=== PATIENT | male | born 1950 | race Caucasian/White ===

== ENCOUNTER → 2016-11-02 | Outpatient (REF) | payer MEDICARE, OTHER | LOC: M SFHCPLAZ 11:33 | PROVIDERS: ATTEND Family Medicine | DX: R19.7 Diarrhea, unspecified (principal) ==

== ENCOUNTER → 2016-11-22 | Outpatient (REF) | payer MEDICARE, OTHER | LOC: M SFHCPLAZ 11:52 | PROVIDERS: ATTEND Family Medicine | DX: K52.9 Noninfective gastroenteritis and colitis, unspecified (principal) ==

== ENCOUNTER → 2016-11-25 | Outpatient (REF) | payer MEDICARE, OTHER ==
[2016-12-01 00:06] LABS: CALPROTECTIN STOOL <16 ug/g (0-120); O+P EXAM Final report (.)
== END ==
LOC: M SFHCPLAZ 11-24 17:02
PROVIDERS: ATTEND Family Medicine
DX: R19.7 Diarrhea, unspecified (principal)

== ENCOUNTER → 2016-11-25 | Outpatient (REF) | payer MEDICARE, OTHER ==
[2016-11-25 19:25] LABS: MEAN CORPUSCULAR HEMOGLOBIN 29.6 pg (27.0-33.0); MEAN CORPUSCULAR VOLUME 89.7 fl (80.0-96.0); RED CELL DISTRIBUTION WIDTH 13.1 % (11.5-14.5); WHITE BLOOD COUNT 7.8 K/mm3 (4.0-10.0)
[2016-11-25 20:29] LABS: ERYTHROCYTE SEDIMENTATION RATE 2 mm/hr (0-20)
[2016-11-25 21:09] LABS: EOSINOPHILS 3 % (0-5)
== END ==
LOC: M SFHCPLAZ 17:44
PROVIDERS: ATTEND Family Medicine
DX: R19.7 Diarrhea, unspecified (principal)

== ENCOUNTER → 2016-12-09 | Outpatient (REF) | payer MEDICARE, OTHER ==
[2016-12-13 00:07] LABS: 5HIAA 24HR URINE 4.8 mg/24 hr (0.0-14.9)
== END ==
LOC: M SFHCPLAZ 09:58
PROVIDERS: ATTEND Family Medicine
DX: K52.9 Noninfective gastroenteritis and colitis, unspecified (principal)

== ENCOUNTER → 2017-01-25 | Outpatient (REF) | payer MEDICARE, OTHER | LOC: M LAB REF 10:23 | PROVIDERS: ATTEND Ophthalmology | DX: H02.834 Dermatochalasis of left upper eyelid (principal); H02.831 Dermatochalasis of right upper eyelid ==

== ENCOUNTER → 2017-03-17 | Outpatient (REF) | payer MEDICARE, OTHER ==
[2017-03-17 15:31] LABS: ALKALINE PHOSPHATASE 70 U/L (45-117); ALT/SGPT 39 U/L (12-78); ANION GAP 6 MEQ/L (8-16); AST/SGOT 23 U/L (15-37); BILIRUBIN,TOTAL 0.5 MG/DL (0.2-1.0); BLOOD UREA NITROGEN 25 MG/DL (7-18); CARBON DIOXIDE LEVEL 30 MEQ/L (21-32); CHLORIDE LEVEL 108 MEQ/L (98-107); CHOLESTEROL LEVEL 165 MG/DL (<200); CREATININE FOR GFR 0.99 MG/DL (0.70-1.30); GLOMERULAR FILTRATION RATE > 60.0 (>49); GLUCOSE, FASTING 108 MG/DL (80-110); POTASSIUM SERUM 4.1 MEQ/L (3.5-5.1); SODIUM LEVEL 144 MEQ/L (136-145); TRIGLYCERIDES LEVEL 95 MG/DL (<150)
[2017-03-17 15:32] LABS: ALBUMIN 3.6 GM/DL (3.2-5.2); ALBUMIN/GLOBULIN RATIO 1.44 (1.00-1.93); FERRITIN 265 NG/ML (26-388); PERCENT SATURATION 25.2 % (19.7-37.4); TOTAL IRON BINDING CAPACITY 290 UG/DL (250-450); TOTAL PROTEIN 6.1 GM/DL (6.4-8.2)
== END ==
LOC: M SFHCPLAZ 07:58
PROVIDERS: ATTEND Family Medicine
DX: Z00.00 Encounter for general adult medical examination without abnormal findings (principal); E78.5 Hyperlipidemia, unspecified; E53.8 Deficiency of other specified B group vitamins; R73.01 Impaired fasting glucose; N40.1 Benign prostatic hyperplasia with lower urinary tract symptoms
CPT/HCPCS: 80053; 80061; 82550; 82728; 83036; 83550; G0103

== ENCOUNTER → 2017-05-30 | Outpatient (REF) | payer MEDICARE, OTHER ==
[2017-05-30 12:13] LABS: ANION GAP 9 MEQ/L (8-16); BLOOD UREA NITROGEN 15 MG/DL (7-18); CALCIUM LEVEL 8.5 MG/DL (8.8-10.2); CARBON DIOXIDE LEVEL 31 MEQ/L (21-32); CHLORIDE LEVEL 105 MEQ/L (98-107); CREATININE FOR GFR 0.96 MG/DL (0.70-1.30); GLOMERULAR FILTRATION RATE > 60.0 (>49); GLUCOSE, FASTING 84 MG/DL (80-110); POTASSIUM SERUM 3.7 MEQ/L (3.5-5.1); SODIUM LEVEL 145 MEQ/L (136-145)
== END ==
LOC: M SFHCPLAZ 10:24
PROVIDERS: ATTEND Physician Assistant Medical
DX: M54.42 Lumbago with sciatica, left side (principal)

== ENCOUNTER → 2017-05-30 | Outpatient (CLI) | payer MEDICARE, BC, OTHER ==
--- NOTE | 2017-05-30 15:33 | REP ---
MR LUMBAR SPINE WITHOUT CONTRAST: HISTORY: Back pain. COMPARISON: 11/01/2006. Decreased signal intensity on T2-weighted images is present in the L3-4 through L5-S1 intervertebral discs. The discs are decreased in height. These findings are consistent with disc degeneration. There is no disc bulge or herniation at the L1-2 level. The L1 nerves exit the neural foramina without compression. A diffuse disc bulge and small left paracentral intraforaminal disc protrusion are present. There is minimal compression of the thecal sac. There is hypertrophy of the posterior articulating facets. There is posterolateral displacement of the left L2 nerve distal to the neural foramen. The right L2 nerve exits the neural foramen with compression. A diffuse disc bulge is present at the L3-4 level. There is minimal compression of the thecal sac. There is hypertrophy of the posterior articulating facets. The L3 nerves exit the neural foramina without compression. A diffuse disc bulge is present at the L4-5 level. There is minimal compression of the thecal sac. There is hypertrophy of the posterior articulating facets. The L4 nerves exit the neural foramina without compression. A diffuse disc bulge is present at the L5-S1 level. There is no thecal sac compression. The previously noted small right intraforaminal and lateral disc protrusion is not seen. There is hypertrophy of the posterior articulating facets. There is compression of the L5 nerves in the neural foramina. The conus medullaris is normal in appearance terminating at the level of the L1-2 intervertebral disc. Increased signal intensity on T2-weighted images is present in the endplates of the L2-S1 vertebral bodies. This represents degenerative change. IMPRESSION: 1. Diffuse disc bulge and small left paracentral and intraforaminal disc protrusion at the L2-3 level with minimal thecal sac compression. This is a new finding. 2. Diffuse disc bugles at the L3-4 and L4-5 levels with minimal thecal sac compression. 3. Diffuse disc bulge at the L5-S1 level without thecal sac compression. The previously noted right intraforaminal and lateral disc protrusion is not seen. There is compression of the L5 nerves in the neural foramina. The left L5 nerve compression is a new finding. Signed by Dwight Madsen MD 05/30/2017 03:38 P
== END ==
LOC: M RAD 13:40
PROVIDERS: ATTEND Physician Assistant Medical
DX: M54.42 Lumbago with sciatica, left side (principal); M51.26 Other intervertebral disc displacement, lumbar region; M51.27 Other intervertebral disc displacement, lumbosacral region; M43.07 Spondylolysis, lumbosacral region
CPT/HCPCS: 36415; 72110; 72148; 80048; G0463

== ENCOUNTER → 2017-05-30 | Outpatient (CLI) | payer MEDICARE, BC, OTHER ==
--- NOTE | 2017-05-30 12:17 | REP ---
Lumbar spine series: Five views. History: Low back pain with sciatica left-sided. Findings: Comparison radiographs are from October 24, 2006. Lumbar vertebral body heights are preserved. Alignment is normal. There is degenerative disc narrowing and fairly prominent osteophyte formation anteriorly at L5-S1 and to a somewhat lesser extent L3-4. Discogenic spurring is seen at L2-3 and L1-2. Degenerative disc spurring is new at L5-S1 and more pronounced at the other levels when compared with the prior study. Pedicles and posterior elements are intact. There is no evidence of spondylolysis or spondylolisthesis. There is some osteoarthritic facet hypertrophy and sclerosis bilaterally at L5-S1 and L4-5. This is also more pronounced compared to the prior study. No bony erosive change is seen. Psoas margins are symmetric. Sacrum and SI joints are intact. Mild vascular calcification is noted. Impression: Degenerative spondylosis changes more pronounced radiographically than on the 2007 prior study. Signed by Marek Gamez MD 05/30/2017 12:40 P
== END ==
LOC: M RAD 11:33
PROVIDERS: ATTEND Physician Assistant Medical
DX: M54.42 Lumbago with sciatica, left side (principal); M43.07 Spondylolysis, lumbosacral region

== ENCOUNTER → 2017-09-23 | Outpatient (REF) | payer MEDICARE, OTHER ==
[2017-09-23 13:44] LABS: BASO # 0.1 10^3/uL (0.0-0.2); BASO % 0.7 % (0.0-1.0); EOS # 0.2 10^3/uL (0.0-0.50); IMMATURE GRANULOCYTE % 0.4 % (0-0); LYMPH # 2.7 10^3/uL (1.5-4.5); LYMPH % 32.1 % (24.0-44.0); MEAN CORPUSCULAR HEMOGLOBIN 30.8 pg (27.0-33.0); MEAN CORPUSCULAR HGB CONC 33.9 g/dl (32.0-36.5); MEAN CORPUSCULAR VOLUME 90.9 fl (80.0-96.0); MONO # 0.6 10^3/uL (0.0-0.8); MONO % 6.6 % (0.0-5.0); NEUTROPHILS # 4.9 10^3/uL (1.8-7.7); NEUTROPHILS % 58.2 % (36.0-66.0); PLATELET COUNT, AUTOMATED 288 10^3/uL (150-450); RED CELL DISTRIBUTION WIDTH 13.1 % (11.5-14.5); WHITE BLOOD COUNT 8.3 10^3/uL (4.0-10.0)
[2017-09-23 13:59] LABS: VITAMIN B12 LEVEL 680 PG/ML (247-911)
[2017-09-23 14:11] LABS: ALBUMIN/GLOBULIN RATIO 1.48 (1.00-1.93); ALKALINE PHOSPHATASE 60 U/L (45-117); ALT/SGPT 35 U/L (12-78); ANION GAP 5 MEQ/L (8-16); AST/SGOT 17 U/L (7-37); BILIRUBIN,TOTAL 0.6 MG/DL (0.2-1.0); BLOOD UREA NITROGEN 19 MG/DL (7-18); CALCIUM LEVEL 9.3 MG/DL (8.8-10.2); CARBON DIOXIDE LEVEL 32 MEQ/L (21-32); CHLORIDE LEVEL 104 MEQ/L (98-107); CREATININE FOR GFR 0.93 MG/DL (0.70-1.30); FREE T4 0.81 NG/DL (0.76-1.46); GLOMERULAR FILTRATION RATE > 60.0 (>49); GLUCOSE, FASTING 84 MG/DL (80-110); POTASSIUM SERUM 4.4 MEQ/L (3.5-5.1); SODIUM LEVEL 141 MEQ/L (136-145); TOTAL PROTEIN 6.7 GM/DL (6.4-8.2)
[2017-09-25 00:07] LABS: Lyme Disease IgG/IgM Antibodie <0.91 ISR (0.00-0.90); Lyme Disease IgM Ab Quantitati <0.80 index (0.00-0.79)
== END ==
LOC: M SFHCPLAZ 09:27
PROVIDERS: ATTEND Family Medicine
DX: E53.8 Deficiency of other specified B group vitamins (principal); R73.01 Impaired fasting glucose; G31.84 Mild cognitive impairment of uncertain or unknown etiology; E55.9 Vitamin D deficiency, unspecified

== ENCOUNTER → 2017-09-30 | Outpatient (CLI) | payer MEDICARE, BC, OTHER ==
--- NOTE | 2017-09-30 11:03 | REP ---
MRI brain without contrast: History: Mild cognitive impairment. . Comparison study: No comparison imaging. Technique: Axial and sagittal imaging planes are utilized for T1 and T2-weighted scans. Sequences include spin-echo, fast spin echo, FLAIR, and diffusion weighted sequences. MRI findings: No bony calvarial lesion is seen. Craniocervical junction and upper cervical cord are normal in appearance. There is no MR evidence of significant paranasal sinus disease. No intraorbital abnormality is seen. The lateral, third, and fourth ventricles are normal in size and position. Auguste-white differentiation pattern is intact above and below the tentorium. There is no evidence of intracranial hemorrhage. No mass, infarction, extra-axial fluid collection or midline shift is seen. No abnormal white matter lesion is seen. Impression: Negative noncontrast brain MRI study. Signed by Marek Gamez MD 09/30/2017 10:55 A
== END ==
LOC: M PLARAD 08:48
PROVIDERS: ATTEND Family Medicine
DX: G31.84 Mild cognitive impairment of uncertain or unknown etiology (principal)

== ENCOUNTER → 2018-03-23 | Outpatient (REF) | payer MEDICARE, OTHER ==
[2018-03-23 12:17] LABS: ALBUMIN 3.6 GM/DL (3.2-5.2); ALBUMIN/GLOBULIN RATIO 1.44 (1.00-1.93); ALKALINE PHOSPHATASE 61 U/L (45-117); ALT/SGPT 39 U/L (12-78); ANION GAP 7 MEQ/L (8-16); AST/SGOT 16 U/L (7-37); BILIRUBIN,TOTAL 0.8 MG/DL (0.2-1.0); BLOOD UREA NITROGEN 18 MG/DL (7-18); C REACTIVE PROTEIN QUANTITATIV < 0.30 MG/DL (0.00-0.30); CALCIUM LEVEL 8.9 MG/DL (8.8-10.2); CARBON DIOXIDE LEVEL 30 MEQ/L (21-32); CHLORIDE LEVEL 104 MEQ/L (98-107); CHOLESTEROL LEVEL 171 MG/DL (<200); CPK CREATINE PHOSPHOKINASE 302 U/L (39-308); CREATININE FOR GFR 0.94 MG/DL (0.70-1.30); GLOMERULAR FILTRATION RATE > 60.0 (>49); GLUCOSE, FASTING 111 MG/DL (70-100); HDL CHOLESTEROL 57 MG/DL (>40); NON-HDL-C 114 MG/DL; POTASSIUM SERUM 4.1 MEQ/L (3.5-5.1); PROSTATIC SPECIFIC AG MONITOR 1.44 NG/ML (< 4.0); SODIUM LEVEL 141 MEQ/L (136-145); TOTAL PROTEIN 6.1 GM/DL (6.4-8.2); TRIGLYCERIDES LEVEL 70 MG/DL (<150)
[2018-03-23 13:05] LABS: ESTIMATED AVERAGE GLUCOSE 111 MG/DL (60-110); HEMOGLOBIN A1c 5.5 %
== END ==
LOC: M SFHCPLAZ 08:54
DX: I10 Essential (primary) hypertension (principal); N40.1 Benign prostatic hyperplasia with lower urinary tract symptoms; R73.01 Impaired fasting glucose
CPT/HCPCS: 82550

== ENCOUNTER → 2019-02-01 | Outpatient (CLI) | payer MEDICARE, BC, OTHER ==
--- NOTE | 2019-02-09 08:18 | SLEEPHOME ---
DATE OF PROCEDURE: 02/01/2019 ORDERED BY: Dr. Bello Diagnostic home sleep testing was performed due to concern for the obstructive sleep apnea syndrome. For testing a nocturnal T3 respiratory monitoring device was used. Continuous record was made of pulse, oxygen saturation airflow, chest, abdominal strain and body position. 9 hours and 59 minutes of data were reviewed. There were 8 hours and 44 minutes marked as time in bed. During the interval marked time in bed there were 108 respiratory events identified of 10 seconds in duration or greater for a respiratory event index of 12.4. The events were primarily obstructive about 22 central and mixed apneas were seen. Baseline pulse rate and saturation values were unable to be obtained as the probe became dislodged early in the study. Testing was performed in both the supine and nonsupine positions. IMPRESSION: Abnormal home sleep testing with repetitive respiratory events and a respiratory event index of 12.4 is consistent with the obstructive sleep apnea syndrome. RECOMMENDATIONS: The patient should be encouraged to undergo formal sleep evaluation and in laboratory pressure titration.
== END ==
LOC: M SLEEP HO 10:54
PROVIDERS: ATTEND Family Medicine
DX: R40.0 Somnolence (principal)

== ENCOUNTER → 2019-05-07 | Outpatient (CLI) | payer MEDICARE, BC, OTHER ==
--- NOTE | 2019-05-09 09:12 | SLEEPCENT ---
DATE OF STUDY: 05/07/2019 ORDERED BY: LETY Stock Nocturnal polysomnography was performed for evaluation of sleep physiology in this patient with a history of excessive somnolence and abnormal home testing who has comorbidities of hypertension and acid reflux disease. 7 hours and 26 minutes of data were reviewed. There were 318 minutes of sleep identified. Sleep latency was prolonged at 24 minutes. REM latency was prolonged at 323 minutes. Sleep architecture showed poor progression and some fragmentation. There was one REM cycle. Overall sleep efficiency 72.1%. The electrocardiogram showed a sinus rhythm with an average heart rate of 56 beats per minute. EEG showed normal waveforms for awake and sleep. There were 110 respiratory events identified of 10 seconds in duration or greater for an apnea-hypopnea index of 20.8. The events were primarily obstructive not exclusive to sleep stage nor body posture. Arousals from respiratory events occurred 14.3 times per hour and oxygen desaturations were seen into the 80s. There was some activity in the limb. Limb movement arousal index of 6.6. IMPRESSION: Obstructive sleep apnea syndrome (G47.33), apnea-hypopnea index 20.8. RECOMMENDATION: The patient should be encouraged to return to sleep disorder center for pressure therapy. In the interim, alcohol and sedative avoidance should be practiced and caution exercised during the operation of motor vehicles. cc: ASHWINI Salazar
== END ==
LOC: M SLEEP 19:41
PROVIDERS: ATTEND Physician Assistant
DX: G47.30 Sleep apnea, unspecified (principal)

== ENCOUNTER → 2019-06-10 | Outpatient (CLI) | payer MEDICARE, BC, OTHER ==
--- NOTE | 2019-06-14 12:42 | SLEEPCENT ---
DATE OF PROCEDURE: 06/10/2019 ORDERING PROVIDER: Fidel Danielle PA-C, INTERPRETATION Nocturnal polysomnography was performed for the titration of pressure therapy in this patient with obstructive sleep apnea syndrome. Apnea-hypopnea index of 20.8. For testing a ResMed Mirage FX nasal mask of standard size was used, 4 cm of water pressure were applied to the circuit and the lights were extinguished. 7 hours and 5 minutes of data were reviewed. There were 392.5 minutes of sleep identified. Sleep latency was normal at 10.5 minutes. Rapid eye movement (REM) latency was delayed at 206 minutes. Sleep architecture improved with optimal pressure therapy. There was only one REM episodes. The overall sleep efficiency was 69.6%. Electrocardiogram showed sinus rhythm with an average heart rate of 56 beats per minute. EEG showed normal waveforms for wake and sleep stages. Respiratory events were fully palliated with CPAP to a pressure of +5. Some limb activity was noted in the EMG leads. Limb movement arousal index of 9.2 up from the diagnostic night. IMPRESSION: Obstructive sleep apnea syndrome (G47.33) RECOMMENDATIONS: Nightly use of pressure therapy 5 cm of water. MTDD
== END ==
LOC: M SLEEP 20:00
PROVIDERS: ATTEND Physician Assistant
DX: G47.33 Obstructive sleep apnea (adult) (pediatric) (principal)

== ENCOUNTER → 2019-06-27 | Outpatient (REF) | payer MEDICARE, BC, OTHER ==
[2019-06-27 09:53] LABS: APPEARANCE, URINE CLEAR (CLEAR); BACTERIA, URINE AUTO NEGATIVE (NEGATIVE); BASO % 0.6 % (0.0-1.0); BILIRUBIN, URINE AUTO NEGATIVE (NEGATIVE); BLOOD, URINE BLOOD NEGATIVE (NEGATIVE); COLOR, URINE YELLOW (YELLOW); EOS # 0.2 10^3/uL (0.0-0.5); EOS % 2.6 % (0.0-3.0); GLUCOSE, URINE (UA) AUTO NEGATIVE (NEGATIVE); HEMATOCRIT 49.3 % (42.0-52.0); HEMOGLOBIN 16.9 g/dl (13.5-17.5); KETONE, URINE AUTO NEGATIVE (NEGATIVE); LEUKOCYTE ESTERASE, URINE AUTO NEGATIVE (NEGATIVE); LYMPH # 2.3 10^3/uL (1.5-5.0); LYMPH % 33.7 % (24.0-44.0); MEAN CORPUSCULAR HEMOGLOBIN 31.1 pg (27.0-33.0); MEAN CORPUSCULAR HGB CONC 34.3 g/dl (32.0-36.5); MEAN CORPUSCULAR VOLUME 90.6 fl (80.0-96.0); MONO # 0.4 10^3/uL (0.0-0.8); MONO % 6.3 % (0.0-5.0); MUCUS, URINE SMALL (NEGATIVE); NEUTROPHILS # 3.9 10^3/uL (1.5-8.5); NEUTROPHILS % 56.7 % (36.0-66.0); NITRITE, URINE AUTO NEGATIVE (NEGATIVE); PLATELET COUNT, AUTOMATED 255 10^3/uL (150-450); PROTEIN, URINE AUTO NEGATIVE (NEGATIVE); RBC, URINE AUTO 0 /HPF (0-3); RED BLOOD COUNT 5.44 10^6/uL (4.30-6.10); SPECIFIC GRAVITY URINE AUTO 1.026 (1.002-1.035); SQUAMOUS EPITHELIAL CELL UR AU 0 /HPF (0-6); UROBILINOGEN, URINE AUTO 0.2 mg/dL (0.0-2.0); WBC, URINE AUTO 0 /HPF (0-3); WHITE BLOOD COUNT 6.9 10^3/uL (4.0-10.0)
[2019-06-27 10:23] LABS: ALBUMIN 3.6 GM/DL (3.2-5.2); ALT/SGPT 40 U/L (12-78); BILIRUBIN,TOTAL 0.7 MG/DL (0.2-1.0); BLOOD UREA NITROGEN 15 MG/DL (7-18); CALCIUM LEVEL 9.1 MG/DL (8.8-10.2); CARBON DIOXIDE LEVEL 28 MEQ/L (21-32); CHLORIDE LEVEL 105 MEQ/L (98-107); CHOLESTEROL LEVEL 168 MG/DL (<200); CHOLESTEROL RISK RATIO 2.847 (<5); CREATININE FOR GFR 0.88 MG/DL (0.70-1.30); FREE T4 0.79 NG/DL (0.76-1.46); GLOMERULAR FILTRATION RATE > 60.0 (>49); GLUCOSE, FASTING 117 MG/DL (70-100); HDL CHOLESTEROL 59 MG/DL (>40); LDL CHOLESTEROL 93 MG/DL (<100); NON-HDL-C 109 MG/DL; SODIUM LEVEL 142 MEQ/L (136-145); TRIGLYCERIDES LEVEL 81 MG/DL (<150)
[2019-06-27 10:25] LABS: MALB URINE SIEMENS 25.8 MG/L; MAU/CREAT RATIO 12.1 MCG/MG (0.0-30.0)
[2019-06-27 10:29] LABS: PTH INTACT 62.1 PG/ML (18.5-88.0); TOTAL 25(OH) VITAMIN D 64.8 NG/ML (30.0-100.0); VITAMIN B12 LEVEL 534 PG/ML (247-911)
[2019-06-27 11:12] LABS: HEMOGLOBIN A1c 5.6 %
== END ==
LOC: M LABDRAWP 08:12
PROVIDERS: ATTEND Family Medicine
DX: E53.8 Deficiency of other specified B group vitamins (principal); E55.9 Vitamin D deficiency, unspecified; R73.01 Impaired fasting glucose; E78.5 Hyperlipidemia, unspecified
CPT/HCPCS: 36415; 80053; 80061; 81001; 82043; 82306; 82607; 83036; 83735; 83970; 84439; 84443; 85025; G0103

== ENCOUNTER → 2020-08-26 | Outpatient (REF) | payer MEDICARE, OTHER ==
[2020-08-26 10:25] LABS: BASO % 0.6 % (0.0-1.0); EOS # 0.2 10^3/uL (0.0-0.5); EOS % 2.7 % (0.0-3.0); HEMATOCRIT 51.8 % (42.0-52.0); HEMOGLOBIN 16.8 g/dl (13.5-17.5); LYMPH # 2.2 10^3/uL (1.5-5.0); LYMPH % 33.4 % (24.0-44.0); MEAN CORPUSCULAR HEMOGLOBIN 29.4 pg (27.0-33.0); MEAN CORPUSCULAR HGB CONC 32.4 g/dl (32.0-36.5); MEAN CORPUSCULAR VOLUME 90.6 fl (80.0-96.0); MONO # 0.4 10^3/uL (0.0-0.8); MONO % 5.5 % (0.0-5.0); NEUTROPHILS # 3.8 10^3/uL (1.5-8.5); NEUTROPHILS % 57.5 % (36.0-66.0); PLATELET COUNT, AUTOMATED 281 10^3/uL (150-450); RED BLOOD COUNT 5.72 10^6/uL (4.30-6.10); WHITE BLOOD COUNT 6.7 10^3/uL (4.0-10.0)
[2020-08-26 11:28] LABS: ALBUMIN 3.9 GM/DL (3.2-5.2); ALT/SGPT 36 U/L (12-78); BILIRUBIN,TOTAL 0.7 MG/DL (0.2-1.0); BLOOD UREA NITROGEN 14 MG/DL (7-18); CALCIUM LEVEL 9.4 MG/DL (8.8-10.2); CARBON DIOXIDE LEVEL 30 MEQ/L (21-32); CHLORIDE LEVEL 105 MEQ/L (98-107); CREATININE FOR GFR 1.04 MG/DL (0.70-1.30); FREE T4 0.85 NG/DL (0.76-1.46); GLOMERULAR FILTRATION RATE > 60.0 (>49); GLUCOSE, FASTING 128 MG/DL (70-100); POTASSIUM SERUM 4.6 MEQ/L (3.5-5.1); SODIUM LEVEL 141 MEQ/L (136-145); TOTAL 25(OH) VITAMIN D 61.8 NG/ML (30.0-100.0); TOTAL PROTEIN 6.4 GM/DL (6.4-8.2)
[2020-08-26 12:03] LABS: HEMOGLOBIN A1c 5.5 %
== END ==
LOC: M SFHCPLAZ 08:00
PROVIDERS: ATTEND Family Medicine
DX: I10 Essential (primary) hypertension (principal); E78.5 Hyperlipidemia, unspecified; R73.01 Impaired fasting glucose; Z12.5 Encounter for screening for malignant neoplasm of prostate; E55.9 Vitamin D deficiency, unspecified
CPT/HCPCS: 36415; 80053; 82306; 83036; 83525; 83970; 84439; 84443; 85025; 86376; G0103

== ENCOUNTER → 2021-08-27 | Outpatient (CLI) | payer MEDICARE, BC, OTHER ==
[2021-08-27 10:19] LABS: BASO % 0.6 % (0.0-1.0); EOS # 0.2 10^3/uL (0.0-0.5); EOS % 2.8 % (0.0-3.0); HEMATOCRIT 51.7 % (42.0-52.0); LYMPH # 2.1 10^3/uL (1.5-5.0); LYMPH % 29.6 % (24.0-44.0); MEAN CORPUSCULAR HEMOGLOBIN 30.2 pg (27.0-33.0); MEAN CORPUSCULAR HGB CONC 32.9 g/dl (32.0-36.5); MONO # 0.4 10^3/uL (0.0-0.8); MONO % 5.6 % (2.0-8.0); NEUTROPHILS # 4.3 10^3/uL (1.5-8.5); NEUTROPHILS % 61.3 % (36.0-66.0); PLATELET COUNT, AUTOMATED 270 10^3/uL (150-450); RED BLOOD COUNT 5.62 10^6/uL (4.30-6.10); WHITE BLOOD COUNT 7.1 10^3/uL (4.0-10.0)
[2021-08-27 10:49] LABS: HEMOGLOBIN A1c 5.4 %
[2021-08-27 11:06] LABS: ALBUMIN 3.7 GM/DL (3.2-5.2); ALT/SGPT 36 U/L (12-78); BILIRUBIN,TOTAL 0.7 MG/DL (0.2-1.0); BLOOD UREA NITROGEN 17 MG/DL (7-18); CALCIUM LEVEL 9.3 MG/DL (8.8-10.2); CARBON DIOXIDE LEVEL 30 MEQ/L (21-32); CHLORIDE LEVEL 107 MEQ/L (98-107); CHOLESTEROL LEVEL 175 MG/DL (<200); CHOLESTEROL RISK RATIO 3.645 (<5); CREATININE FOR GFR 1.03 MG/DL (0.70-1.30); FERRITIN 227 NG/ML (26-388); GLOMERULAR FILTRATION RATE > 60.0 (>42); GLUCOSE, FASTING 135 MG/DL (70-100); HDL CHOLESTEROL 48 MG/DL (>40); LDL CHOLESTEROL 108 MG/DL (<100); MAGNESIUM LEVEL 2.1 MG/DL (1.8-2.4); NON-HDL-C 127 MG/DL; NT-PRO BNP 27 PG/ML (<125); POTASSIUM SERUM 4.2 MEQ/L (3.5-5.1); SODIUM LEVEL 143 MEQ/L (136-145); TOTAL 25(OH) VITAMIN D 61.9 NG/ML (30.0-100.0); TOTAL PROTEIN 6.4 GM/DL (6.4-8.2); TRIGLYCERIDES LEVEL 94 MG/DL (<150); VITAMIN B12 LEVEL 610 PG/ML (247-911)
== END ==
LOC: M PLALAB 08:11
PROVIDERS: ATTEND Family Medicine
DX: E53.8 Deficiency of other specified B group vitamins (principal); I10 Essential (primary) hypertension; Z12.5 Encounter for screening for malignant neoplasm of prostate; R73.01 Impaired fasting glucose; E55.9 Vitamin D deficiency, unspecified; E78.5 Hyperlipidemia, unspecified; Z79.899 Other long term (current) drug therapy
CPT/HCPCS: 36415; 80053; 80061; 82306; 82607; 82728; 83036; 83525; 83735; 83880; 83970; 85025; G0103

== ENCOUNTER → 2022-03-26 | Outpatient (CLI) | payer MEDICARE, BC, OTHER ==
[2022-03-26 10:24] LABS: BASO # 0.1 10^3/uL (0.0-0.2); BASO % 0.9 % (0.0-1.0); EOS # 0.2 10^3/uL (0.0-0.5); EOS % 2.7 % (0.0-3.0); HEMATOCRIT 50.5 % (42.0-52.0); HEMOGLOBIN 16.7 g/dl (13.5-17.5); LYMPH # 2.3 10^3/uL (1.5-5.0); LYMPH % 32.3 % (24.0-44.0); MEAN CORPUSCULAR HGB CONC 33.1 g/dl (32.0-36.5); MEAN CORPUSCULAR VOLUME 90.8 fl (80.0-96.0); MONO # 0.4 10^3/uL (0.0-0.8); MONO % 5.4 % (2.0-8.0); NEUTROPHILS # 4.1 10^3/uL (1.5-8.5); NEUTROPHILS % 58.4 % (36.0-66.0); PLATELET COUNT, AUTOMATED 262 10^3/uL (150-450); RED BLOOD COUNT 5.56 10^6/uL (4.30-6.10)
[2022-03-26 10:45] LABS: HEMOGLOBIN A1c 5.6 %
[2022-03-26 10:57] LABS: ALBUMIN 3.6 GM/DL (3.2-5.2); ALT/SGPT 32 U/L (12-78); BLOOD UREA NITROGEN 14 MG/DL (7-18); CALCIUM LEVEL 9.7 MG/DL (8.8-10.2); CARBON DIOXIDE LEVEL 32 MEQ/L (21-32); CHLORIDE LEVEL 105 MEQ/L (98-107); CREATININE FOR GFR 0.92 MG/DL (0.70-1.30); FERRITIN 243 NG/ML (26-388); FREE T4 0.73 NG/DL (0.76-1.46); GLOMERULAR FILTRATION RATE > 60.0 (>42); GLUCOSE, FASTING 130 MG/DL (70-100); IMMUNOGLOBULIN E 19.3 IU/ML (<100); IRON (FE) 173 UG/DL (65-175); PERCENT SATURATION 60.5 % (19.7-50.0); POTASSIUM SERUM 4.6 MEQ/L (3.5-5.1); SODIUM LEVEL 142 MEQ/L (136-145); TOTAL IRON BINDING CAPACITY 286 UG/DL (250-450); TOTAL PROTEIN 6.2 GM/DL (6.4-8.2)
[2022-03-27 09:11] LABS: APOLIPOPROTEIN B/A-1 RATIO 0.6 ratio (0.0-0.7); ERYTHROPOIETIN 8.8 mIU/mL (2.6-18.5); INSULIN LEVEL 9.5 uIU/mL (2.6-24.9)
== END ==
LOC: M PLALAB 08:17
PROVIDERS: ATTEND Family Medicine
DX: R73.01 Impaired fasting glucose (principal); I10 Essential (primary) hypertension; J30.9 Allergic rhinitis, unspecified; E78.5 Hyperlipidemia, unspecified

== ENCOUNTER → 2022-04-26 | Outpatient (CLI) | payer MEDICARE, BC, OTHER | LOC: M PLAIMG 12:20 | PROVIDERS: ATTEND Physician Assistant | DX: S30.0XXA Contusion of lower back and pelvis, initial encounter (principal); X58.XXXA Exposure to other specified factors, initial encounter; Y92.9 Unspecified place or not applicable; Y93.9 Activity, unspecified; Y99.9 Unspecified external cause status ==

== ENCOUNTER → 2022-06-15 | Outpatient (CLI) | payer MEDICARE, BC, OTHER ==
[2022-06-15 14:33] LABS: BASO % 0.6 % (0.0-1.0); EOS # 0.2 10^3/uL (0.0-0.5); EOS % 3.3 % (0.0-3.0); HEMATOCRIT 49.8 % (42.0-52.0); HEMOGLOBIN 16.8 g/dl (13.5-17.5); LYMPH # 2.4 10^3/uL (1.5-5.0); LYMPH % 33.3 % (24.0-44.0); MEAN CORPUSCULAR HEMOGLOBIN 30.8 pg (27.0-33.0); MEAN CORPUSCULAR HGB CONC 33.7 g/dl (32.0-36.5); MEAN CORPUSCULAR VOLUME 91.2 fl (80.0-96.0); MONO # 0.4 10^3/uL (0.0-0.8); MONO % 5.8 % (2.0-8.0); NEUTROPHILS # 4.1 10^3/uL (1.5-8.5); NEUTROPHILS % 56.7 % (36.0-66.0); PLATELET COUNT, AUTOMATED 248 10^3/uL (150-450); RED BLOOD COUNT 5.46 10^6/uL (4.30-6.10); WHITE BLOOD COUNT 7.2 10^3/uL (4.0-10.0)
[2022-06-15 15:12] LABS: ALBUMIN 3.8 GM/DL (3.2-5.2); ALT/SGPT 33 U/L (12-78); BILIRUBIN,TOTAL 0.6 MG/DL (0.2-1.0); BLOOD UREA NITROGEN 16 MG/DL (7-18); CALCIUM LEVEL 9.4 MG/DL (8.8-10.2); CARBON DIOXIDE LEVEL 31 MEQ/L (21-32); CHLORIDE LEVEL 104 MEQ/L (98-107); CREATININE FOR GFR 0.86 MG/DL (0.70-1.30); GLOMERULAR FILTRATION RATE > 60.0 (>42); GLUCOSE, FASTING 91 MG/DL (70-100); NT-PRO BNP 42 PG/ML (<125); POTASSIUM SERUM 4.4 MEQ/L (3.5-5.1); SODIUM LEVEL 139 MEQ/L (136-145); TOTAL PROTEIN 6.2 GM/DL (6.4-8.2)
== END ==
LOC: M PLALAB 11:54
PROVIDERS: ATTEND Family Medicine
DX: I10 Essential (primary) hypertension (principal)

== ENCOUNTER → 2022-07-19 | Outpatient (CLI) | payer MEDICARE, BC, OTHER | LOC: M RAD 07:54 | PROVIDERS: ATTEND Family Medicine | DX: I10 Essential (primary) hypertension (principal) ==

== ENCOUNTER → 2023-08-16 | Outpatient (CLI) | payer MEDICARE, BC, OTHER ==
[2023-08-16 12:15] LABS: TOTAL PROTEIN,RANDOM URINE 11.7 MG/DL (0.0-14.0)
[2023-08-16 12:20] LABS: CREATININE,RANDOM URINE 93.9 MG/DL
[2023-08-16 12:21] LABS: TOTAL 25(OH) VITAMIN D 63.4 NG/ML (20.0-100.0)
[2023-08-16 12:22] LABS: ALBUMIN 3.8 G/DL (3.2-5.2); ALKALINE PHOSPHATASE 63 U/L (46-116); ALT/SGPT 35 U/L (7.0-40); AST/SGOT 22 U/L (<34); BLOOD UREA NITROGEN 18 MG/DL (9-23); CALCIUM LEVEL 9.4 MG/DL (8.3-10.6); CARBON DIOXIDE LEVEL 31 MMOL/L (20-31); CHLORIDE LEVEL 104 MMOL/L (98-107); CHOLESTEROL LEVEL 191 MG/DL (<200); CREATININE FOR GFR 0.86 MG/DL (0.70-1.30); GLOMERULAR FILTRATION RATE > 60.0 (>42); GLUCOSE, FASTING 117 MG/DL (74-106); HDL CHOLESTEROL 51.5 MG/DL (>40); LDL CHOLESTEROL 111.9 MG/DL (<100); NON-HDL-C 139.5 MG/DL; POTASSIUM SERUM 4.2 MMOL/L (3.5-5.1); SODIUM LEVEL 141 MMOL/L (136-145); TOTAL PROTEIN 6.3 G/DL (5.7-8.2); TRIGLYCERIDES LEVEL 138 MG/DL (<150)
[2023-08-16 12:27] LABS: PTH INTACT 63.7 PG/ML (18.5-88.0)
[2023-08-16 12:30] LABS: THYROID PEROXIDASE ANTIBODY < 28.0 U/ML (<60.0)
[2023-08-26 11:09] LABS: IGE RECEPTOR ABY 1 9.8 (<10)
== END ==
LOC: M PLALAB 07:13
PROVIDERS: ATTEND Family Medicine
DX: I10 Essential (primary) hypertension (principal); Z12.5 Encounter for screening for malignant neoplasm of prostate; E55.9 Vitamin D deficiency, unspecified; E78.5 Hyperlipidemia, unspecified; L50.1 Idiopathic urticaria
CPT/HCPCS: 36415; 80053; 80061; 82306; 82570; 83735; 83880; 83970; 84156; 86352; 86376; G0103

== ENCOUNTER → 2023-08-16 | Outpatient (REF) | payer MEDICARE, BC, OTHER | LOC: M SFHCPLAZ 12:56 | PROVIDERS: ATTEND Family Medicine | DX: I10 Essential (primary) hypertension (principal); E55.9 Vitamin D deficiency, unspecified; Z12.5 Encounter for screening for malignant neoplasm of prostate; E78.5 Hyperlipidemia, unspecified; L50.1 Idiopathic urticaria; Z53.9 Procedure and treatment not carried out, unspecified reason ==

== ENCOUNTER 2024-02-02 09:45 | Day surgery (SDC) | payer MEDICARE, BC ==
[~2024-02-02] VITALS: Ht 172.7 cm; Wt 75.9 kg
[~2024-02-02 09:45] MED LIST: ASPI81TA26 PO; ATOR40TA75 PO; CELE10TA PO; CHLO25TA PO; CULT10CA4 PO; CYAN500T14 PO; LEVOTAB10 PO; OMEP1CAP73 PO; TELM1TAB35 PO; VITA100093 PO; propofoL 200 MG/20 ML VIAL As Ordered ONE; propofoL 500 MG/50 ML VIAL As Ordered ONE
[2024-02-02] MEDS: NS 1,000 ML IV ONE (10:00)
[2024-02-02 10:29] VITALS: TEMP 98.3
[2024-02-02 10:47] VITALS: BP 142/78; O2SAT 99
== END 2024-02-02 10:57 | disposition home or self-care (01) ==
LOC: M OPP 09:45
PROVIDERS: ATTEND Surgery
DX: Z12.11 Encounter for screening for malignant neoplasm of colon (principal); D12.4 Benign neoplasm of descending colon; D12.2 Benign neoplasm of ascending colon; D12.3 Benign neoplasm of transverse colon; G47.30 Sleep apnea, unspecified; Z79.02 Long term (current) use of antithrombotics/antiplatelets; Z79.82 Long term (current) use of aspirin; Z79.899 Other long term (current) drug therapy; Z87.891 Personal history of nicotine dependence; Z99.89 Dependence on other enabling machines and devices

== ENCOUNTER → 2024-02-17 | Outpatient (CLI) | payer MEDICARE, BC ==
[~2024-02-17] MED LIST changes: +ALPR0.5T3 PO; -propofoL 200 MG/20 ML VIAL As Ordered ONE; -propofoL 500 MG/50 ML VIAL As Ordered ONE
[2024-02-17 16:29] LABS: ALBUMIN 3.9 G/DL (3.2-5.2); ALKALINE PHOSPHATASE 60 U/L (46-116); ALT/SGPT 44 U/L (7.0-40); AST/SGOT 23 U/L (<34); BILIRUBIN,TOTAL 0.7 MG/DL (0.3-1.2); BLOOD UREA NITROGEN 17 MG/DL (9-23); CALCIUM LEVEL 9.7 MG/DL (8.3-10.6); CARBON DIOXIDE LEVEL 33 MMOL/L (20-31); CHLORIDE LEVEL 104 MMOL/L (98-107); CHOLESTEROL LEVEL 167 MG/DL (<200); CHOLESTEROL RISK RATIO 3.18 (<5); CREATININE FOR GFR 0.88 MG/DL (0.70-1.30); GLOMERULAR FILTRATION RATE > 60.0 (>42); GLUCOSE, FASTING 81 MG/DL (74-106); HDL CHOLESTEROL 52.4 MG/DL (>40); LDL CHOLESTEROL 91.2 MG/DL (<100); MAGNESIUM LEVEL 2.1 MG/DL (1.8-2.4); NON-HDL-C 114.6 MG/DL; SODIUM LEVEL 140 MMOL/L (136-145); TOTAL PROTEIN 6.1 G/DL (5.7-8.2); TRIGLYCERIDES LEVEL 117 MG/DL (<150)
== END ==
LOC: M PLALAB 11:49
PROVIDERS: ATTEND Family Medicine
DX: I10 Essential (primary) hypertension (principal); E78.5 Hyperlipidemia, unspecified

== ENCOUNTER 2024-02-21 10:06 | Day surgery (SDC) | payer MEDICARE, BC ==
[~2024-02-21] VITALS: Ht 172.7 cm; Wt 76.0 kg
[~2024-02-21 10:06] MED LIST changes: +LIDOCAINE 2% 100MG/5ML SDV (FOR ANES.) As Ordered ONE; +MIDAZOLAM INJ 2MG/2ML VIAL As Ordered ONE; +ONDANSETRON 4MG 2ML VIAL As Ordered ONE; +ROCURONIUM BROMIDE 50MG/5ML VIAL As Ordered ONE; +dexmedeTOMIDine (4MCG/ML)200MCG/50ML BTL (PRECEDEX) As Ordered ONE; +fentaNYL 100 MCG/2 ML INJECTION As Ordered ONE; +propofoL 200 MG/20 ML VIAL As Ordered ONE
[2024-02-21] MEDS ORDERED: ACETAMINOPHEN 1000MG 100ML IV BAG As Ordered ONE (10:48)
[2024-02-21] MEDS: LR 1,000 ML IV SCH (11:00)
[2024-02-21] MEDS: ceFAZolin SOD 2 GM in IV 1 EA IV ONE (11:20)
[2024-02-21] MEDS ORDERED: KETOROLAC 60MG 2ML VIAL As Ordered ONE (11:35)
[2024-02-21] MEDS ORDERED: SUGAMMADEX SODIUM 500 MG/5 ML VIAL (BRIDION) As Ordered ONE (11:35)
[2024-02-21] MEDS ORDERED: ONDANSETRON 4MG 2ML VIAL IV PRN (12:15)
[2024-02-21] MEDS ORDERED: MORPHINE 2 MG/ML 1ML VIAL IV PRN (12:15)
[2024-02-21] MEDS: fentaNYL 100 MCG/2 ML INJECTION IV PRN (12:56)
[2024-02-21] MEDS: oxyCODONE 5MG TAB PO PRN (12:58)
[2024-02-21 13:25] VITALS: BP 150/80; TEMP 97.6; O2SAT 96
== END 2024-02-21 13:55 | disposition home or self-care (01) ==
LOC: M SDC 10:06
PROVIDERS: ATTEND Surgery
DX: K40.90 Unilateral inguinal hernia, without obstruction or gangrene, not specified as recurrent (principal); Z88.1 Allergy status to other antibiotic agents; J30.2 Other seasonal allergic rhinitis; I10 Essential (primary) hypertension; E78.5 Hyperlipidemia, unspecified; K21.9 Gastro-esophageal reflux disease without esophagitis; F41.9 Anxiety disorder, unspecified; G47.33 Obstructive sleep apnea (adult) (pediatric); Z79.82 Long term (current) use of aspirin; Z79.899 Other long term (current) drug therapy
CPT/HCPCS: 49650; C1781; J0131; J0665; J0690; J1100; J1885; J2250; J2405; J3010; S2900

== ENCOUNTER → 2024-08-24 | Outpatient (CLI) | payer MEDICARE, OTHER ==
[~2024-08-24] MED LIST changes: -LIDOCAINE 2% 100MG/5ML SDV (FOR ANES.) As Ordered ONE; -MIDAZOLAM INJ 2MG/2ML VIAL As Ordered ONE; -ONDANSETRON 4MG 2ML VIAL As Ordered ONE; -ROCURONIUM BROMIDE 50MG/5ML VIAL As Ordered ONE; -dexmedeTOMIDine (4MCG/ML)200MCG/50ML BTL (PRECEDEX) As Ordered ONE; -fentaNYL 100 MCG/2 ML INJECTION As Ordered ONE; -propofoL 200 MG/20 ML VIAL As Ordered ONE
== END ==
LOC: M RAD 08:04
PROVIDERS: ATTEND Family Medicine
DX: K74.00 Hepatic fibrosis, unspecified (principal); N28.1 Cyst of kidney, acquired; K82.4 Cholesterolosis of gallbladder

== ENCOUNTER → 2025-10-09 | Outpatient (CLI) | payer MEDICARE, BC ==
[2025-10-09 11:33] LABS: BASO # 0.1 10^3/uL (0.0-0.2); BASO % 0.8 % (0.0-1.0); EOS # 0.3 10^3/uL (0.0-0.5); EOS % 3.5 % (0.0-3.0); LYMPH # 3.0 10^3/uL (1.5-5.0); LYMPH % 40.3 % (24.0-44.0); MONO # 0.5 10^3/uL (0.0-0.8); MONO % 6.4 % (2.0-8.0); NEUTROPHILS # 3.6 10^3/uL (1.5-8.5); NEUTROPHILS % 48.7 % (36.0-66.0); PLATELET COUNT, AUTOMATED 268 10^3/uL (150-450)
[2025-10-09 11:46] LABS: ESTIMATED AVERAGE GLUCOSE 108.0 MG/DL (60-110)
[2025-10-09 11:59] LABS: ALT/SGPT 35 U/L (7.0-40); AST/SGOT 22 U/L (<34); CALCIUM LEVEL 9.2 MG/DL (8.3-10.6); CARBON DIOXIDE LEVEL 31 MMOL/L (20-31); CHLORIDE LEVEL 103 MMOL/L (98-107); CREATININE FOR GFR 0.84 MG/DL (0.70-1.30); GLOMERULAR FILTRATION RATE > 90.0 (>42); POTASSIUM SERUM 3.5 MMOL/L (3.5-5.1); PTH INTACT 50.9 PG/ML (18.5-88.0); SODIUM LEVEL 142 MMOL/L (136-145)
[2025-10-09 12:01] LABS: TOTAL 25(OH) VITAMIN D 71.5 NG/ML (20.0-100.0)
== END ==
LOC: M PLALAB 07:54
PROVIDERS: ATTEND Family Medicine
DX: I10 Essential (primary) hypertension (principal); R73.01 Impaired fasting glucose; E53.8 Deficiency of other specified B group vitamins; E55.9 Vitamin D deficiency, unspecified